=== PATIENT | male | born 1950 | race Caucasian/White ===

== ENCOUNTER 2017-05-29 12:37 | Inpatient (IN) ==
[2017-05-29] MEDS ORDERED: Acetaminophen 650 MG RECTAL SUPP RC ONE (12:46)
[2017-05-29] MEDS ORDERED: *HR* Dextrose 50 % in Water (Syg) 50 ML SYRINGE IVP PRN ×2 (12:51→12:58)
[2017-05-29] MEDS ORDERED: Insulin Regular, Human 100 UNIT/ML IV PRN (12:58)
[2017-05-29 13:08] LABS: ABG Base Excess -9 mEq/L (-2 to 3); ABG Chloride 121 mEq/L (98-107); ABG Glucose > 700 mg/dL (60-95); ABG HCO3 20 mEq/L (21-27); ABG Ionized Calcium 1.05 mmol/L (1.15-1.35); ABG Oxygen Saturation 90 % (95-98); ABG PCO2 55 mmHg (35-45); ABG PH 7.17 pH Units (7.32-7.45); ABG PO2 76 mmHg (85-104); ABG TCO2 22 mEq/L (20-26)
[2017-05-29] MEDS: Insulin Human Regular 100 UNIT in 0.9 % Sodium Chloride 100 ML IVC SCH ×2 (13:15→22:53)
--- NOTE | 2017-05-29 13:28 | Emergency Department Note ---
Disposition Clinical Impression: Septic shock, Elevated troponin, Hypernatremia Acute renal failure Qualifiers: Acute renal failure type: unspecified Qualified Code(s): N17.9 - Acute kidney failure, unspecified Acute respiratory failure Qualifiers: Respiratory failure complication: hypoxia Qualified Code(s): J96.01 - Acute respiratory failure with hypoxia Aspiration pneumonia Qualifiers: Aspiration pneumonia type: unspecified Laterality: bilateral Lung location: unspecified part of lung Qualified Code(s): J69.0 - Pneumonitis due to inhalation of food and vomit Diabetic ketoacidosis Qualifiers: Diabetes mellitus type: other specified (including BETO) Diabetes mellitus complication detail: without coma Qualified Code(s): E13.10 - Other specified diabetes mellitus with ketoacidosis without coma Disposition: Admitted As Inpatient Condition: Critical Reasons to Return/Additional Instructions: Admitted as inpatient Referrals: NONE,PCP [Primary Care Provider] - Time of Disposition: 17:53 General Adult HPI - General Chief complaint: ED General Medical Stated complaint: LOW BP Time Seen by Provider: 05/29/17 12:47 Source: EMS Mode of arrival: EMS Limitations: altered mental status Nursing Notes Reviewed: Yes Vital Signs Reviewed: Yes - History of Present Illness HPI Narrative: 66-year-old male who arrived via med flight from the [facility] emergency department. On arrival to the emergency room, patient was intubated, sedated. He was receiving levophed via peripheral line at a rate of 4. Report from EMS stated the patient had gone into septic shock and also had a blood sugar of greater than 800. Per chart review from [facility] emergency room, patient was sent from retirement after being found in respiratory distress and being unresponsive. He was unable to communicate at time of presentation and thus history of present illness is limited. O2 sats reportedly in the mid 80s on nonrebreather. He was intubated at that time. He was also noted to have a thick white sputum production coming through the endotracheal tube at that time. Intubation was confirmed via chest x-ray. He was started on triple antibiotic coverage as well as IV fluid bolus with a total of 4 L. Central line in the right groin was attempted but was unsuccessful as ultrasound was not available. Patient continued to be tachycardic with a heart rate in the 150s, blood pressure stable in the 110s systolic. He was noted to be in atrial fibrillation with rapid ventricular response. This recent blood pressure at time of departure was 119/87. Labs at [facility] were significant for sodium 150, potassium 5.9, chloride 108, bicarbonate 17, BUNs/creatinine of 80/4.12, glucose of 876, WBC of 15.6, H/H of 20.7/68.8 , coagulation studies significant for PT of 20.0, troponin of 0.26, lactic acid 8.5, beta hydroxybutyric acid 1.18. ABG was significant for combined metabolic and respiratory acidosis with pH of 7.15, CO2 67, bicarbonate 17. Pt Subjective Complaint: unresponsive Pain Scale: 0 Treatments Prior to Arrival: other - Related Data Home Medications Medication Instructions Recorded Confirmed Acetaminophen [Tylenol Arthritis] 650 mg PO Q6H PRN 05/29/17 05/29/17 Apixaban [Eliquis] 5 mg PO BID 05/29/17 05/29/17 Atorvastatin [Lipitor] 40 mg PO HS 05/29/17 05/29/17 Diltiazem CD (24hr) [Cardizem CD] 180 mg PO DAILY 05/29/17 05/29/17 Docusate [Colace] 100 mg PO BID 05/29/17 05/29/17 Guaifenesin [Mucinex] 600 mg PO BID 05/29/17 05/29/17 Melatonin 5 mg PO HS 05/29/17 05/29/17 Metoprolol [Lopressor] 25 mg PO BID 05/29/17 05/29/17 Quetiapine Fumarate [SEROquel] 100 mg PO HS 05/29/17 05/29/17 Allergies Allergy/AdvReac Type Severity Reaction Status Date / Time No Known Allergies Allergy Verified 05/29/17 08:41 Limitations: ROS unobtainable due to patients medical condition Past Medical History - Past Medical History Medical history: Reports: arthritis, atrial fibrillation, COPD, CVA, GERD, GI bleed, hyperlipidemia, hypertension, osteoporosis, SVT, TIA, venous stasis Surgical history: Reports: appendectomy Psychiatric history: Reports: PTSD - Social History Smoking Status: Current every day smoker Smokeless Tobacco Status: No Alcohol use: Reports: heavy Drug use: Reports: marijuana Physical Exam - General Limitations: altered mental status General appearance: other (Intubated, sedated) - Head Head exam: atraumatic, normocephalic, normal inspection - Chest Chest inspection: Present: normal inspection, symmetric chest wall rise - Expanded Respiratory Exam Location: rales: Right, decreased breath sounds: Left, Right - Cardiovascular Cardiovascular exam: Present: tachycardia - Abdominal Exam Abdominal exam: Present: soft. Absent: rigidity Course Course Narrative: 66-year-old male arriving via med flight for altered mental status, hypotension , shock. Patient was evaluated immediately upon presentation to the emergency room. Records review as per history of present illness. He did evaluate and determine the need for central line placement to the right internal jugular vein to maintain pressure and possible need for future rate control medications for tachycardia. Vital Signs Temperature 101 F H 05/29/17 12:39 Pulse Rate 168 05/29/17 12:39 Respiratory Rate 25 05/29/17 12:39 Blood Pressure 139/70 05/29/17 12:39 O2 Sat by Pulse Oximetry 100 05/29/17 12:39 Temperature 102.7 F H 05/29/17 15:59 Pulse Rate 131 05/29/17 17:16 Respiratory Rate 23 05/29/17 18:02 Blood Pressure 100/43 05/29/17 18:02 O2 Sat by Pulse Oximetry 89 05/29/17 18:02 Oxygen Delivery Oxygen Delivery Ventilator Procedures - Central Line Placement Right IJ Central Line Inserted*: Yes Central Line Catheter Replacement*: No Central Line Insertion: emergent Procedural Pause: verify patient name and date of , delicia and assess the site, assemble equipment and verify supplies, perform hand hygiene Patient Placed on Monitor/Pulse Ox: Yes During the Procedure: clinician is wearing sterile gloves, cap, mask,& gown during insertion, sterile field and sterile technique are maintained, patient's face is covered with drape or mask and wearing a cap, everyone in room is wearing a mask Central Line Prep: Chlorhexidine scrub Prep the Procedure Site: apply chloraprep to the skin using a back and forth scrubbing motion, apply chloraprep for 30 seconds (upper body), 1-2 min ( femoral sites), allow prep to dry, drape the patient with a full body drape Ultrasound Used for Placement: Yes Central Line Lumen Inserted: triple Post Procedure: sutured in place, good blood return, all ports aspirated, flushed, capped, sterile dressing applied, guide wire removed and visualized Post Procedure X-Ray: tip of catheter in good position, no pneumothorax seen Patient Tolerated Procedure: well Complications: none Name of Clinician Inserting Central Line: Ryan Davis Clinician Assisting/Completing Checklist: Caleb Panchaltter Date: 05/29/17 Time: 13:31 Medical Decision Making - [facility] Narrative Medical decision making narrative: 66-year-old male presenting to emergency room from [facility] ED after becoming unresponsive, in acute respiratory failure. He was intubated at [facility] and received a central line placement upon arrival to this facility. He was started on DKA protocol including insulin drip after he was discovered to have a blood sugar of greater than 800. He will be continued on triple antibiotic therapy for possible aspiration pneumonia. We did obtain CT scans of abdomen, chest, head which revealed bilateral lower lobe pneumonia, otherwise normal. Other labs significant for metabolic and respiratory acidosis, lactate of 8.5 which is down from 4.5 after fluid resuscitation, acute renal failure with a creatinine of 4.45, troponin 0.35. Other labs obtained at [facility] emergency room and reviewed. He was started on propofol, fentanyl, bicarbonate, Cardizem, insulin drips for sedation acidosis and atrial fibrillation with rapid ventricular response respectively. He also received an arterial line in the left radial artery. Patient's vital signs remained significant for persistent temperatures most recently 102, tachycardia in the 120s, blood pressure remains hypotensive in the 80s over 40s, and oxygen saturation in the 80s despite 100% FiO2 on ventilator. He is been given Tylenol rectally for his fever however it remains elevated. His findings were discussed with his sister who is present and she is aware of his poor prognosis. His prognosis remains extremely critical at this time. These findings were discussed with the on-call hospitalist. Due to no intensive care coverage, hospitalist except the admission to the intensive care unit with the pulmonology/critical care consult. - Lab Data Result diagrams: 05/29/17 16:28 Lab Results 05/29/17 05/29/17 05/29/17 Range/Units 13:01 13:33 13:33 Sample Site ABG pH 7.17 L* (7.32-7.45) pH Units ABG pCO2 55 H (35-45) mmHg ABG pO2 76 L (85-104) mmHg ABG HCO3 20 L (21-27) mEq/L ABG Total CO2 22 (20-26) mEq/L ABG O2 Saturation 90 L (95-98) % ABG Base Excess -9 L (-2 to 3) mEq/L ABG Hematocrit 60.0 H (37.5-50.1) % Alfonso Test ABG Chloride 121 H (98-107) mEq/L Sodium 154 H 150 H (135-148) mEq/L Potassium 5.2 5.7 H (3.5-5.3) mEq/L Glucose > 700 H* 773 H* (60-95) mg/dL Lactate 3.7 H (0.7-2.1) mmol/L Respiration Rate O2 Delivery Device Blood Gas Modality Inspired O2 (1-15=lpm [id number]=%) Tidal Volume cc PEEP cm H2O Chloride 119 H (98-107) mEq/L Carbon Dioxide 14 L (23-29) mEq/L BUN 81 H (8-23) mg/dL Creatinine 4.02 H (0.70-1.30) mg/dL Est GFR ( Amer) 18 L (> 60) Est GFR (Non-Af Amer) 15 L (> 60) BUN/Creatinine Ratio 20 (6-26) Calculated Osmolality 372 H (280-300) Lactic Acid 4.5 H* (0.5-2.2) mmol/L Calcium 7.8 L (8.6-10.3) mg/dL Ammonia (16-53) mcmol/L Troponin I 0.35 H* (< 0.04) ng/mL Arterial Blood Ionized Calcium 1.05 L (1.15-1.35) mmol/L Person Notif of Claudia GONZALES 05/29/17 05/29/17 05/29/17 Range/Units 13:34 16:28 18:01 Sample Site Art Line ABG pH 7.20 L* (7.32-7.45) pH Units ABG pCO2 53 H (35-45) mmHg ABG pO2 65 L (85-104) mmHg ABG HCO3 21 (21-27) mEq/L ABG Total CO2 23 (20-26) mEq/L ABG O2 Saturation 87 L (95-98) % ABG Base Excess -8 L (-2 to 3) mEq/L ABG Hematocrit (37.5-50.1) % Alfonso Test N/A ABG Chloride (98-107) mEq/L Sodium 154 H (135-148) mEq/L Potassium 4.4 (3.5-5.3) mEq/L Glucose 635 H* (60-95) mg/dL Lactate (0.7-2.1) mmol/L Respiration Rate 20 O2 Delivery Device Adult Vent Blood Gas Modality VC Inspired O2 100.0 (1-15=lpm [id number]=%) Tidal Volume 580 cc PEEP 5 cm H2O Chloride 121 H (98-107) mEq/L Carbon Dioxide 19 L (23-29) mEq/L BUN 84 H (8-23) mg/dL Creatinine 4.45 H (0.70-1.30) mg/dL Est GFR ( Amer) 16 L (> 60) Est GFR (Non-Af Amer) 13 L (> 60) BUN/Creatinine Ratio 19 (6-26) Calculated Osmolality 373 H (280-300) Lactic Acid (0.5-2.2) mmol/L Calcium 8.2 L (8.6-10.3) mg/dL Ammonia 65 H (16-53) mcmol/L Troponin I (< 0.04) ng/mL Arterial Blood Ionized Calcium (1.15-1.35) mmol/L Person Notif of Crit - EKG Data EKG #1 Rate: tachycardia Sasabe/QRS: left axis deviation When compared to previous EKG there are: changes noted Interpretation: other (tachyarrythmia documented, difficult to interpret rhythm given high heart rate. Suspect sinus tachycardia) Critical Care Time Critical Care Time: Yes Total Critical Care Time: 75 Attestation: Critical care performed: Time is exclusive of separately billable procedures. Time includes: direct patient care, patient reassessment, coordination of patient care, interpretation of data (laboratory data, radiology data, and respiratory data), review of patient's medical records, medical consultation and documentation of patient care. Procedures included in critical care time: Procedures excluded from critical care time: Attestation Statement - Attestation Attestation: I, Caleb Macdonald DO, examined this patient [id number] and my medical decision-making was reviewed with Julian Davis PGY-1, Resident Physician. I agree with the documented findings, disposition and treatment plan as described except to the extent set forth below. Please see my progress notes for details. Patient seen and examined the time of arrival by EMS. Patient was transferred from outside facility for evaluation and treatment of critical illness. Patient 's was seen and evaluated at the outside facility for fusion and possible sepsis. Patient was found to have aspiration pneumonia. He presented hypoxic and altered. He was immediately intubated at the outside facility. Fluid resuscitation was started 2 peripheral IVs in the bilateral hands. IV access was difficult in the central line was attempted in the right groin with no success. Patient had IV antibiotics including vancomycin, Zosyn, Levaquin started at their facility. Patient was given 3 L of fluid and had a fourth liter running in transit. He was started on Levaquin bed prior to leaving the facility as well to a peripheral IV. He had no issues during transport according to EMS. Patient did have a labile pulse ox. On presentation here to the emergency room patient was transported to the bed without any difficulty. Assessment of his intubation was completed. Bilateral breath sounds were noted but there are coarse on the right with diminished aeration. The abdomen was quiet on exam but distended. Patient does not have any urine output at this time. Immediately Accu-Cheks were given. EKG was recorded as well as repeat temperature which was 100 and here in our emergency room. Rectal Tylenol was given. An oropharyngeal gastric tube was placed. Patient then was given Motrin by OG tube. Patient had right internal jugular central line placed without any complication by the resident physician. I was present throughout and type of procedure there is no issues noted. Chest x-ray was completed after the procedure confirming placement. Medications were started infusing through that line at this time. Reviewed the patient's labs from the outside facility shows concerning for diabetic ketoacidosis. Patient does have a acidemia with a anion gap along with hyperkalemia hyponatremia and a glucose of greater than 800. Patient was started on diabetic ketoacidosis protocol and IV infusion of insulin. He also had a heart rate of greater than 130 on presentation that appeared to be regular but the etiology is unknown at this point. Concern is noted for dehydration versus sepsis. Patient will be started on Cardizem as needed for rate control. Patient has not required any sedation after arrival here. Vital signs to be monitored closely interventions including CT of the head chest and abdomen will be completed. IV antibiotics of Ativan given. Patient will require admission to the hospital. Patient is concerning for medical decompensation and clinical presentation and may potentially during this treatment course. Patient's family did arrive approximately 45 minutes after the arrival of the patient to our emergency room. They confirm that he does have a significant history of alcohol abuse and coronary artery disease. Troponin was elevated here today. EKG just shows tachycardia at this time and no specific ST segment elevations or concern for myocardial infarction at this point. Patient's rate will be controlled and then determination of the cardiac status will be confirmed and completed. She is also on Eliquis with no signs of acute GI bleed or hematemesis after OG was placed. Repeat ABG and respiratory rate were increased secondary to the diabetic ketoacidosis. Propofol will be added on for sedation and fentanyl for symptomatically control. Patient is very critically ill and may decompensate here in the emergency room. Currently he is a full code. ICU admission will be established once a full workup is completed. Approximately 60 minutes of critical care provider this patient's treatment course secondary to one-on-one interventional medication titrations and consultations. See detailed documentation of the physical exam, medical intervention, medical decision- making and disposition and the resident physician's note 1700 Patient is still profoundly hypotensive, acidotic. Patient is having respiratory issues including hypoxia. Ventilator adjustments have been made. Bicarbonate has been given. Titrated drips of the Levophed and vasopressin had been ordered at this time. An arterial line was placed by myself at the bedside with ultrasound guidance. No complications noted. Bleeding was controlled. Patient is critically ill and could decompensate and within the next 24 hours. Family was informed of this. Patient has multiple organ related issues including acute kidney insufficiency, decreased urinary output, pulmonary infection including aspiration concern. Patient also is confused and altered. Patient will be admitted to the ICU for definitive management treatment for severe sepsis. 1800 Patient transferred to the ICU in stable condition with arterial line in place. No complications noted in the emergency room despite the patient being critically ill. Patient has levothyroid, vasopressin, insulin drip, fluid resuscitation, amiodarone and place prior to leaving our emergency room.
[2017-05-29] MEDS ORDERED: Propofol 500 MG/50 ML INFUS..BTL ONE (13:37)
[2017-05-29] MEDS ORDERED: Ibuprofen 800 MG TABLET PO ONE (13:53)
[2017-05-29] MEDS: Propofol 500 MG/50 ML INFUS..BTL IVC SCH (14:00)
[2017-05-29 14:20] LABS: Troponin I 0.35 ng/mL (< 0.04)
[2017-05-29] MEDS: FentaNYL (PF) 1,000 MCG in 0.9 % Sodium Chloride 80 ML IVC SCH (14:40)
[2017-05-29] MEDS ORDERED: Furosemide 20 MG/2 ML VIAL IVP ONE (15:35)
[2017-05-29] MEDS ORDERED: Hydrocortisone Sodium Succ 100 MG/2 ML VIAL IVP ONE (15:36)
[2017-05-29] MEDS ORDERED: *HR* Rocuronium Bromide 50 MG/5 ML VIAL IVC ONE (15:36)
[2017-05-29 15:56] LABS: Calcium 7.8 mg/dL (8.6-10.3); Potassium 5.7 mEq/L (3.5-5.1)
[2017-05-29] MEDS ORDERED: 0.9 % Sodium Chloride 500 ML ONE ×2 (16:03→18:23)
[2017-05-29] MEDS: Sodium Bicarbonate 150 MEQ in D5% in Water 1,000 ML IVC SCH (16:27)
[2017-05-29 16:44] LABS: Calcium 8.2 mg/dL (8.6-10.3); Potassium 4.4 mEq/L (3.5-5.1)
[2017-05-29] MEDS ORDERED: OXYCODONE Oral CONC 10 MG/0.5 ML ORAL.SYG SL PRN ×2 (17:11)
[2017-05-29] MEDS ORDERED: Ketorolac 15 MG/ML VIAL IVP PRN (17:11)
[2017-05-29] MEDS ORDERED: Ondansetron 4 MG/2 ML VIAL IVP PRN (17:11)
[2017-05-29] MEDS ORDERED: Naloxone 0.4 MG/ML INJ IVP PRN ×2 (17:11)
[2017-05-29] MEDS ORDERED: Lacri-Lube 3.5 GM TUBE BOTH EYES PRN (17:14)
[2017-05-29] MEDS ORDERED: Ipratropium/Albuterol Neb 3 ML ONE (17:21)
[2017-05-29] MEDS: Ipratropium/Albuterol Neb 3 ML IH SCH ×3 (17:23→19:59)
--- NOTE | 2017-05-29 17:23 | Internal Med History&Physical ---
<RenePhil nieto Lenny - Last Filed: 05/29/17 19:47> Date of Encounter: 05/29/17 Time of Encounter: 17:13 Assessment and Plan (1) Acute respiratory failure Current visit: Yes Status: Acute Likely related to septic shock and pneumonia. Adequate oxygenation and ventilation. Continue full ventilatory support, ABGs every 2 hours. Qualifiers: Respiratory failure complication: hypoxia and hypercapnia Qualified Code(s) : J96.01 - Acute respiratory failure with hypoxia; J96.02 - Acute respiratory failure with hypercapnia; J96.02 - Acute respiratory failure with hypercapnia; J96.02 - Acute respiratory failure with hypercapnia (2) Septic shock Current visit: Yes Status: Acute Secondary to pneumonia. Lactic acid 8.5 at outside hospital has been trending down, was most recently 3.7. Blood and sputum cultures are pending. Patient received adequate fluid hydration with over 7 L of fluid given by the emergency department. Antibiotics were initiated emergency department with vancomycin, Levaquin and Zosyn, these will be continued and adjusted based on culture results. Will trend lactate. Continue vasopressor support with norepinephrine , will add vasopressin and phenylephrine to maintain map greater than 65. (3) Pneumonia Current visit: Yes Status: Acute Patient has evidence of pneumonia on chest CT, particularly in the lower lobes. Given the patient's history is concern for community-acquired versus aspiration. Sputum and blood cultures were obtained at outside ED, we will follow-up on these results. Given the patient's critical illness we will proceed with broad-spectrum antibiotics with vancomycin, Levaquin and Zosyn. Qualifiers: Pneumonia type: due to unspecified organism Laterality: unspecified laterality Lung location: unspecified part of lung Qualified Code(s): J18.9 - Pneumonia, unspecified organism (4) Diabetic ketoacidosis Current visit: Yes Status: Acute Patient has anion gap metabolic acidosis on presentation with a glucose greater than 700. There is no evidence that the patient has a history of diabetes. DKA protocol was initiated in the emergency department, patient received at least 7 L of fluids. He has been started on insulin drip in sugar has been trending down appropriately. Anion gap is improving. Given that the patient is critically ill he did receive 2 A of bicarbonate push. Continue to monitor blood sugars hourly Qualifiers: Diabetes mellitus type: other specified (including BETO) Diabetes mellitus complication detail: with coma Qualified Code(s): E13.11 - Other specified diabetes mellitus with ketoacidosis with coma (5) KINGSTON (acute kidney injury) Current visit: No Status: Resolved Creatinine was 4.12 on presentation, most recent measurement was in December 2016 when it was normal. Likely related to septic shock and profound dehydration setting of DKA. Patient has minimal urine output. Patient has been aggressively fluid resuscitated however most recent measurement creatinine has stayed stable. At this time the patient is not hyperkalemic, he is mildly uremic but severely, he is acidotic which is likely related to his underlying DKA and lactic acidosis. We will attempt to treat the underlying causes and monitor BMPs and ABGs every 2 hours, if acidosis fails to resolve patient may require acute dialysis. We will consult nephrology. (6) Atrial fibrillation with RVR Current visit: No Status: Acute Patient has chronic A. fib presented acutely tachycardic. Likely driven by his underlying critical illness including sepsis and DKA. Patient was initially started on Cardizem which improved his rate slightly but did not control his atrial fibrillation. We will transition to IV amiodarone and attempt to lessen his degree of hypotension. We will hold his home Eliquis at this time. (7) COPD exacerbation Current visit: No Status: Acute Patient appears to be in COPD exacerbation, IV antibiotics as above, Solu- Medrol 60 mg every 6, scheduled bronchodilators. (8) Hypernatremia Current visit: Yes Status: Acute Likely due to extreme free water deficit. Corrected sodium was 161 on presentation. Anticipate this this will worsen as his sodium is corrected. We will start free water through the G-tube, 200 mL every 4 hours. Continue to monitor sodium every 2 hours with a goal correction of 10 mEq per 24 hours. (9) Liver cirrhosis Current visit: Yes Status: Acute Likely secondary to alcohol abuse, no evidence of ascites and spontaneous bacterial peritonitis is unlikely. Ammonia was only mildly elevated at 65. Continue to monitor and will consider lactulose if patient's mental status does not improve. Qualifiers: Hepatic cirrhosis type: alcoholic cirrhosis Ascites presence: without ascites Qualified Code(s): K70.30 - Alcoholic cirrhosis of liver without ascites Internal Medicine - H&P: HPI Chief complaint: Resp Failure Admitted From: Emergency Dept History of present illness: Mr. Swanson is a 66 year old male with history of cirrhosis in the setting of chronic alcohol abuse, atrial fibrillation, tobacco abuse who presents from the emergency department unresponsive and acute respiratory failure. Patient is intubated and sedated and unable to provide a history. History is obtained from the medical record and discussions with the emergency department physicians. Apparently the patient was found unresponsive at the [facility] in respiratory distress and decreased oxygen saturation. He was found to be respiratory failure and was intubated. He was acutely tachycardic in atrial fibrillation with RVR. The emergency physician felt this was related to his underlying medical conditions so he did not undergo cardioversion. Patient was life flighted to the [facility] emergency department where a central line was placed. Patient remains intubated and sedated on pressor support. Past Med Surg Social Fam HX - Past Medical History Medical history: arthritis, atrial fibrillation, COPD, CVA, GERD, GI bleed, hyperlipidemia, hypertension, osteoporosis, SVT, TIA, venous stasis Psychiatric history: PTSD - Past Surgical History Surgical History: appendectomy - Social History Smoking Status: Current every day smoker Smokeless Tobacco Status: No Alcohol use: heavy Drug use: marijuana - Family History Father Family Member Ethnicity: Non- Living Status: Hx Family Endocrine Disorder: Yes (DM) Mother Adopted: No Family Member Ethnicity: Non- Living Status: Hx Family Cardiac Disorders: No Hx Family Respiratory Disorders: No Hx Family Cancer: No Hx Family GI Disorders: No Hx Family Endocrine Disorder: No Hx Family Neuromuscular Disorders: No Hx Family Neurologic Disorders: No Hx Family HEENT Disorders: No Hx Family Autoimmune Disorders: No Internal Medicine - H&P: Meds Acetaminophen [Tylenol Arthritis] 650 mg PO Q6H PRN 05/29/17 [History] Apixaban [Eliquis] 5 mg PO BID 05/29/17 [History] Atorvastatin [Lipitor] 40 mg PO HS 05/29/17 [History] Diltiazem CD (24hr) [Cardizem CD] 180 mg PO DAILY 05/29/17 [History] Docusate [Colace] 100 mg PO BID 05/29/17 [History] Guaifenesin [Mucinex] 600 mg PO BID 05/29/17 [History] Melatonin 5 mg PO HS 05/29/17 [History] Metoprolol [Lopressor] 25 mg PO BID 05/29/17 [History] Quetiapine Fumarate [SEROquel] 100 mg PO HS 05/29/17 [History] 3 Allergy/AdvReac Type Severity Reaction Status Date / Time No Known Allergies Allergy Verified 05/29/17 08:41 ROS unobtainable: due to endotracheal tube All Systems PM: A 10-system review of systems was performed and is negative for pertinent findings except as documented above in the HPI. - Constitutional Vitals: Temp Pulse Resp BP Pulse Ox 102.7 F H 135 22 79/50 87 05/29/17 15:59 05/29/17 17:03 05/29/17 17:03 05/29/17 17:03 05/29/17 17:03 Exam: Intubated and sedated, nonresponsive at this time - Head Head exam: Present: atraumatic, normal inspection, normocephalic - Eye Eye exam: Present: PERRL - ENT ENT exam: Present: mucous membranes dry - Respiratory Respiratory exam: Present: rhonchi. Absent: rales, respiratory distress, wheezes, tachypnea - Cardiovascular Cardiovascular exam: Present: irregular rhythm, tachycardia. Absent: gallop, rubs, systolic murmur - GI/Abdominal GI/Abdominal exam: Present: hypoactive bowel sounds, soft, no peritoneal signs. Absent: distended, firm - Extremities Exam Extremities exam: Present: mottling (In all 4 extremities). Absent: pedal edema Additional comments: Cold to touch - Neurological Exam Additional comments: Intubated and sedated. Apparently no emergency department patient was moving all 4 extremities spontaneously. - Skin Additional comments: Cool to touch. Internal Med - H&P Results - Labs CBC & Chem 7: 05/29/17 16:28 <Nicola Tovar - Last Filed: 05/29/17 20:31> Date of Encounter: 05/29/17 Internal Medicine - H&P: HPI History of present illness: Mr. Swanson is a 66 year old male All Systems PM: A 10-system review of systems was performed and is negative for pertinent findings except as documented above in the HPI. - Constitutional Vitals: Temp Pulse Resp BP Pulse Ox 103.1 F H 134 20 93/69 87 05/29/17 19:00 05/29/17 19:00 05/29/17 20:00 05/29/17 20:00 05/29/17 20:00 Internal Med - H&P Results - Labs CBC & Chem 7: 05/29/17 16:28 - ABG Interpretation ABG results: 05/29/17 05/29/17 18:01 19:57 ABG pH 7.20 L* 7.26 L ABG pCO2 53 H 46 H ABG pO2 65 L 60 L ABG HCO3 21 21 ABG Total CO2 23 22 ABG O2 Saturation 87 L 86 L ABG Base Excess -8 L -7 L - Attending Attestation I examined this patient and my medical decision-making was reviewed with the Resident Physician Dr Gamez. I agree with the documented findings, disposition and treatment plan as described except to the extent set forth below. The patient was found unresponsive and the [facility]. He was intubated in the field and brought to the hospital. He was found to be febrile. On exam he is sedated and intubated, does not respond to tactile stimuli. Heart is tachycardic irregularly irregular. Lungs sounds are diminished bilaterally. With faint expiratory wheezes. Abdomen is obese soft nontender nondistended. Laboratory data was reviewed. Glucose 635. Sodium 154, chloride 121, BUN 84, creatinine 4.45. ABG pH 7.17, PCO2 55, PCO2 [address] shows bibasilar infiltrates. Assessment: Bilateral pneumonia, suspect aspiration, causing acute hypoxic respiratory failure and combine respiratory and metabolic acidosis causing profound metabolic encephalopathy requiring mechanical ventilation. Septic shock requiring pressor support. The high probability of emergent and significant clinical decompensation with potential impairment of cardiovascular and respiratory function required my full attention and presence at the bedside. I personally spent 50 minutes of critical care time in the emergency department room 21 and ICU room 6. Critical care time involved decision making of high complexity to assess, manipulate, and support vital organ system, in order to prevent further life threatening deterioration of the patient's condition. This involved obtaining updated history from the patient's family member and nursing staff, examining the patient, reviewing EKGs, imaging studies and laboratory data, ordering medications and laboratory studies, and reevaluating for clinical response. The time spent teaching or performing any procedures was not included in the critical care time stated above and was billed separately.
[2017-05-29] MEDS ORDERED: Amiodarone Premix 150 MG/100 ML BAG IVPB ONE (17:26)
[2017-05-29] MEDS ORDERED: Amiodarone Premix 360 MG/200 ML BAG IVC ONE (17:26)
[2017-05-29] MEDS ORDERED: Ringers Solution, Lactated 2,000 ML IVC ONE (17:33)
[2017-05-29] MEDS: D5% in 0.45% NACL w KCl 20 MEQ/1,000 ML MLS IVC SCH (17:56)
[2017-05-29] MEDS ORDERED: Vancomycin 1,750 MG in 0.9 % Sodium Chloride 250 ML IVPB SCH (18:00)
[2017-05-29 18:04] LABS: ABG Base Excess -8 mEq/L (-2 to 3); ABG HCO3 21 mEq/L (21-27); ABG Oxygen Saturation 87 % (95-98); ABG PCO2 53 mmHg (35-45); ABG PO2 65 mmHg (85-104); ABG TCO2 23 mEq/L (20-26); Blood Gas Modality VC; Blood Gas PEEP 5 cm H2O; Blood Gas Respiration Rate 20; Blood Gas VT 580 cc
--- NOTE | 2017-05-29 18:55 | Event Note ---
Date of Encounter: 05/29/17 Time of Encounter: 18:30 Nephrology Received urgent consult for acute renal failure with oligoanuria, severe KINGSTON in the setting of septic shock, hypernatremia and DKA s/p fluid resuscitation. Intubated and requiring 100% FIO2 with CXR demonstrating concern for pulm edema. He has urgent indications for PIPEMAN and d/t his critical illness at present , the best modality at this point would be CRRT with CVVHDF. Discussed in detail with Dr. Gamez, and appreciate Dr. Tovar's and Dr. Gamez's assistance with the temporary HD CVC line placement. I also spoke with the [facility] regarding CVVHDF, and I placed orders remotely via [facility]. Thank you for consulting the [facility] group, and I will closely follow with you and the full consult note to follow.
[2017-05-29] MEDS ORDERED: *HR* Heparin 5,000 UNIT/ML VIAL IV PRN (18:56)
[2017-05-29] MEDS ORDERED: Calcium Gluconate 2,000 MG in 0.9 % Sodium Chloride 100 ML IVPB PRN (18:56)
[2017-05-29] MEDS ORDERED: 0.9 % Sodium Chloride 1,000 ML PRIME SCH (19:00)
[2017-05-29] MEDS ORDERED: Calcium Chloride 4,000 MG in 0.9 % Sodium Chloride 1,000 ML CRRT SCH (19:00)
--- NOTE | 2017-05-29 19:46 | Procedure Note ---
<Phil Gamez - Last Filed: 05/29/17 19:41> Date of procedure: 05/29/17 Pre-op diagnosis: Acute renal failure, fluid overload, septic shock Post-op diagnosis: same Procedure: Temporary dialysis catheter: Written consent was obtained from the patient's sister. The bilateral femoral veins were surveyed using ultrasound. The veins were both small in diameter and their proximity to the artery was made access difficult. The left inguinal area was cleaned and draped in the usual sterile fashion. Under ultrasound guidance introducer needle was advanced into the left femoral vein, dark red, nonpulsatile blood flow was returned. 2 attempts were made at advancing the guidewire however resistance was felt both times despite repositioning of the needle with good blood return. On a third attempt pulsatile blood flow was returned in the needle was removed and pressure was held for 10 minutes. At this point the drape was removed a new kit was opened and the right femoral area was prepped and draped in the usual sterile fashion. Under ultrasound guidance the needle was advanced into the right femoral vein. Dark red, nonpulsatile blood flow was returned. The guidewire was advanced through the needle and into the vein without difficulty. The needle was removed intact and the wire was confirmed to be within the vein using ultrasound. The skin and soft tissues were dilated with 2 successive dilators and the temporary HD catheter was advanced over the guidewire and into the vein without resistance. The guidewire was removed intact. Both dialysis ports and the pigtail were tested and shown to draw blood and flushed easily. The catheter was then sutured in place, Biopatch and sterile dressing were applied. The patient tolerated the procedure well, there were no immediate complications. Anesthesia: GETA Surgeon: Phil Gamez Was there an it assistant present: No Estimated blood loss (cc): 20 IV fluids (cc): 20 Specimen: none Pathology: none sent Condition: critical Disposition: ICU <Nicola Tovar - Last Filed: 05/29/17 20:23> Procedure: I was present and available at the bedside during the performance of this procedure. Procedure was performed by the resident physician skillfully. There are no complications. Patient tolerated the procedure well. Nicola Tovar MD
[2017-05-29] MEDS ORDERED: *HR* Norepinephrine 4 MG/4 ML VIAL IVC ONE (19:59)
[2017-05-29] MEDS ORDERED: D5% in Water 250 ML ONE (20:00)
[2017-05-29] MEDS: Piperacillin/Tazobactam 3.375 GM in 0.9 % Sodium Chloride Mini Bag 100 ML IVPB SCH (20:03)
[2017-05-29] MEDS: Pantoprazole 40 MG VIAL IVP SCH (20:04)
[2017-05-29] MEDS: Phenylephrine 10 MG in D5% in Water 250 ML IVC SCH (20:04)
[2017-05-29 20:05] LABS: ABG Base Excess -7 mEq/L (-2 to 3); ABG HCO3 21 mEq/L (21-27); ABG Oxygen Saturation 86 % (95-98); ABG PCO2 46 mmHg (35-45); ABG PH 7.26 pH Units (7.32-7.45); ABG PO2 60 mmHg (85-104); ABG TCO2 22 mEq/L (20-26); Blood Gas Modality VC; Blood Gas PEEP 10 cm H2O; Blood Gas Respiration Rate 20; Blood Gas VT 620 cc
[2017-05-29] MEDS: Norepinephrine 4 MG in D5% in Water 250 ML IVC SCH ×2 (20:09→22:58)
--- NOTE | 2017-05-29 20:35 | Event Note ---
Date of Encounter: 05/29/17 Time of Encounter: 20:27 CODE STATUS CHANGE: Yara, the patient's nurse reported to myself that the patient's sister requested to have the code status changed. I then went to speak with the patient's sister. The patient's sister reported that her brother would not want CPR should his heart stop. The patient has no children and is not . She wanted a code status change from full code to DNR CCA.
--- NOTE | 2017-05-29 20:47 | Internal Med Progress Note ---
Date of Encounter: 05/29/17 - Constitutional Vitals: Temp Pulse Resp BP Pulse Ox 103.1 F H 134 20 93/69 87 05/29/17 19:00 05/29/17 19:00 05/29/17 20:00 05/29/17 20:00 05/29/17 20:00 Internal Medicine: Result - Labs CBC & Chem 7: 05/29/17 16:28 - ABG Interpretation ABG results: ABG ABG pH 7.26 pH Units (7.32-7.45) L 05/29/17 19:57 ABG pCO2 46 mmHg (35-45) H 05/29/17 19:57 ABG pO2 60 mmHg (85-104) L 05/29/17 19:57 ABG O2 Saturation 86 % (95-98) L 05/29/17 19:57 Consult Discharge Plan - Plan Additional Instructions: Admitted as inpatient Referrals: NONE,PCP [Primary Care Provider] -
[2017-05-29 21:23] LABS: VBG Ionized Calcium 0.97 mmol/L (1.15-1.35); VBG PH 7.22 pH Units (7.32-7.42)
[2017-05-29 21:25] LABS: Basophils # 0.1 K/mcL (0.0-0.2); Basophils % 0.6 %; Immature Granulocytes % 0.9 % (0-4); Lymphocytes # 1.9 K/mcL (0.6-4.6); Lymphocytes % 14.6 %; Mean Corpuscular HGB Conc 30.6 g/dL (31.6-35.5); Mean Corpuscular Hemoglobin 31.6 pg (28.0-33.3); Mean Corpuscular Volume 103.1 fL (83.0-100.0); Mean Platelet Volume 11.7 fL (9.4-12.4); Monocytes # 0.3 K/mcL (0.0-1.3); Monocytes % 2.5 %; Neutrophils # 10.3 K/mcL (1.6-8.9); Nucleated Red Blood Cells 0.3 /100 WBC (0); Platelet Count 285 K/mcL (140-400); Red Blood Count 5.83 M/mcL (4.19-5.50); Red Cell Distribution Width 15.7 % (11.5-14.5); Segmented Neutrophils % 81.4 %
[2017-05-29 21:47] LABS: Calcium 7.9 mg/dL (8.6-10.3); Hematocrit 60.1 % (37.5-50.1); Hemoglobin 18.4 g/dL (12.9-16.9); Magnesium 2.2 mg/dL (1.6-2.6); Potassium 3.8 mEq/L (3.5-5.1)
[2017-05-29 21:58] LABS: Platelet Estimate Normal (Normal); Reactive Lymphocytes Present (Not Present)
[2017-05-29 22:06] LABS: ABG Base Excess -8 mEq/L (-2 to 3); ABG HCO3 19 mEq/L (21-27); ABG Oxygen Saturation 89 % (95-98); ABG PCO2 46 mmHg (35-45); ABG PH 7.23 pH Units (7.32-7.45); ABG PO2 67 mmHg (85-104); ABG TCO2 21 mEq/L (20-26); Blood Gas Modality VC; Blood Gas PEEP 10 cm H2O; Blood Gas Respiration Rate 20; Blood Gas VT 620 cc
[2017-05-29] MEDS: PrismaSATE BGK 4/2.5 5,000 ML CRRT SCH ×2 (22:52)
[2017-05-29] MEDS: Lacri-Lube 3.5 GM TUBE BOTH EYES SCH ×2 (22:54→23:55)
[2017-05-29 22:55] LABS: INR 2.4; Prothrombin Time 25.9 Seconds (9.4-12.1)
[2017-05-29 22:58] LABS: Activated Partial Thrombo Time 34.1 Seconds (26.0-36.0)
[2017-05-29] MEDS: Chlorhexidine Rinse 15 ML MOUTHWASH MM SCH (23:54)
[2017-05-29] MEDS: Amiodarone Premix 360 MG/200 ML BAG IVC SCH (23:55)
[2017-05-29] MEDS: Docusate Oral Soln 100 MG/10 ML UDC GTUBE SCH (23:55)
[2017-05-30] MEDS ORDERED: Aminoglycoside Consult 1 EACH MC ONE (00:09)
[2017-05-30] MEDS: Sodium Bicarbonate 150 MEQ in D5% in Water 1,000 ML IVC SCH (00:20)
[2017-05-30] MEDS: methylPREDNISolone 125 MG/2 ML VIAL IVP SCH ×2 (00:20→06:20)
[2017-05-30] MEDS: D5% in 0.45% NACL w KCl 20 MEQ/1,000 ML MLS IVC SCH (00:21)
[2017-05-30 00:24] LABS: ABG Base Excess -10 mEq/L (-2 to 3); ABG HCO3 19 mEq/L (21-27); ABG Oxygen Saturation 85 % (95-98); ABG PCO2 49 mmHg (35-45); ABG PO2 61 mmHg (85-104); ABG TCO2 21 mEq/L (20-26); Blood Gas Modality VC; Blood Gas PEEP 10 cm H2O; Blood Gas Respiration Rate 20; Blood Gas VT 620 cc
[2017-05-30] MEDS: Ipratropium/Albuterol Neb 3 ML IH SCH ×4 (00:39→11:35)
[2017-05-30 01:14] LABS: VBG Ionized Calcium 1.02 mmol/L (1.15-1.35); VBG PH 7.14 pH Units (7.32-7.42)
[2017-05-30] MEDS: Norepinephrine 4 MG in D5% in Water 250 ML IVC SCH ×2 (01:21→04:04)
[2017-05-30] MEDS: Insulin Human Regular 100 UNIT in 0.9 % Sodium Chloride 100 ML IVC SCH ×3 (01:22→06:27)
[2017-05-30 02:13] LABS: Calcium 8.2 mg/dL (8.6-10.3); Potassium 3.7 mEq/L (3.5-5.1)
[2017-05-30 02:16] LABS: Troponin I 0.35 ng/mL (< 0.04)
[2017-05-30] MEDS: FentaNYL (PF) 1,000 MCG in 0.9 % Sodium Chloride 80 ML IVC SCH (03:45)
[2017-05-30] MEDS: Phenylephrine 10 MG in D5% in Water 250 ML IVC SCH ×2 (03:45→06:18)
[2017-05-30 03:47] LABS: Hemoglobin 18.5 g/dL (12.9-16.9); Immature Granulocytes % 2.3 % (0-4); Lymphocytes % 10.8 %; Mean Corpuscular HGB Conc 30.7 g/dL (31.6-35.5); Mean Corpuscular Hemoglobin 31.8 pg (28.0-33.3); Mean Corpuscular Volume 103.8 fL (83.0-100.0); Mean Platelet Volume 11.5 fL (9.4-12.4); Monocytes % 2.4 %; Platelet Count 229 K/mcL (140-400); Red Blood Count 5.81 M/mcL (4.19-5.50); Red Cell Distribution Width 15.7 % (11.5-14.5)
[2017-05-30 03:48] LABS: Basophils # 0.1 K/mcL (0.0-0.2); Basophils % 0.5 %; Lymphocytes # 1.8 K/mcL (0.6-4.6); Monocytes # 0.4 K/mcL (0.0-1.3); Nucleated Red Blood Cells 0.2 /100 WBC (0)
[2017-05-30 04:01] LABS: Neutrophils # 14.1 K/mcL (1.6-8.9)
[2017-05-30 04:02] LABS: ABG Base Excess -10 mEq/L (-2 to 3); ABG HCO3 18 mEq/L (21-27); ABG Oxygen Saturation 89 % (95-98); ABG PCO2 47 mmHg (35-45); ABG PH 7.21 pH Units (7.32-7.45); ABG PO2 68 mmHg (85-104); ABG TCO2 20 mEq/L (20-26); Blood Gas Modality VC; Blood Gas PEEP 10 cm H2O; Blood Gas Respiration Rate 22; Blood Gas VT 620 cc
[2017-05-30 04:02] LABS: Hematocrit 60.3 % (37.5-50.1)
[2017-05-30 04:04] LABS: Calcium 8.4 mg/dL (8.6-10.3); Potassium 4.2 mEq/L (3.5-5.1)
[2017-05-30] MEDS: Lacri-Lube 3.5 GM TUBE BOTH EYES SCH ×3 (04:05→11:27)
[2017-05-30] MEDS: PrismaSATE BGK 4/2.5 5,000 ML CRRT SCH ×2 (04:13→04:15)
[2017-05-30] MEDS: Propofol 500 MG/50 ML INFUS..BTL IVC SCH (04:13)
[2017-05-30 04:35] LABS: Platelet Estimate Normal (Normal); Reactive Lymphocytes Present (Not Present)
[2017-05-30] MEDS ORDERED: *HR* Metoprolol 5 MG/5 ML VIAL IVP ONE ×2 (05:49→05:50)
[2017-05-30] MEDS ORDERED: Dexmedetomidine HCl 400 MCG/100 ML MLS IVC SCH (06:15)
[2017-05-30] MEDS: Piperacillin/Tazobactam 3.375 GM in 0.9 % Sodium Chloride Mini Bag 100 ML IVPB SCH (06:20)
[2017-05-30] MEDS ORDERED: Insulin LISPRO 300 UNITS/3 ML VIAL SQ PRN (06:30)
[2017-05-30] MEDS ORDERED: Phenylephrine 50 MG in D5% in Water 250 ML IVC SCH (07:45)
[2017-05-30] MEDS ORDERED: Insulin Human Regular 250 UNIT in 0.9 % Sodium Chloride 250 ML IVC SCH (07:45)
[2017-05-30] MEDS ORDERED: Norepinephrine 8 MG in D5% in Water 250 ML IVC SCH (07:45)
[2017-05-30 08:26] LABS: ABG Base Excess -9 mEq/L (-2 to 3); ABG HCO3 17 mEq/L (21-27); ABG Oxygen Saturation 92 % (95-98); ABG PCO2 37 mmHg (35-45); ABG PH 7.27 pH Units (7.32-7.45); ABG PO2 73 mmHg (85-104); ABG TCO2 18 mEq/L (20-26); Blood Gas Modality VC; Blood Gas PEEP 10 cm H2O; Blood Gas Respiration Rate 14; Blood Gas VT 620 cc
[2017-05-30] MEDS: Docusate Oral Soln 100 MG/10 ML UDC GTUBE SCH (08:34)
[2017-05-30] MEDS: Chlorhexidine Rinse 15 ML MOUTHWASH MM SCH (08:35)
[2017-05-30] MEDS: Pantoprazole 40 MG VIAL IVP SCH (08:35)
[2017-05-30] MEDS ORDERED: Hydrocortisone Sodium Succ 100 MG/2 ML VIAL IVP ONE (09:24)
--- NOTE | 2017-05-30 09:40 | Nephrology Consult Note ---
Date of Encounter: 05/30/17 Time of Encounter: 08:15 Assessment and Plan (1) Acute renal failure Status: Acute Overnight, I worked remotely to help arrange for Sita. Appreciate the hospitalist and resident physician in assistance with placement of the temporary HD catheter. He did poorly overnight and did not tolerate Sita d/t his progressively worsening hemodynamics. He could not even tolerate Sita with zero UF. Sita is currently held at least until the pt's daughter arrives, who is in route, and I agree with DNR CCA, given this pt's grave/poor prognosis. Thank you for having consulted the [facility] service. I spent about 45 min in total from the early hours this AM, chart review, studying his electrolytes/labs, vitals plus the interview and exam. Qualifiers: Acute renal failure type: unspecified Qualified Code(s): N17.9 - Acute kidney failure, unspecified History of Present Illness - Reason for Consult Consult date: 05/29/17 Acute Kidney Injury, hypernatremia, metabolic acidosis Requesting physician: Nicola Tovar - Chief Complaint KINGSTON - History of Present Illness Fer Swanson is a 66 y/o WM who presented with acute renal failure and acute respiratory failure in the ICU. Upon my initial interview and exam, his brother , cousin and the [facility] were at bedside. The pt's brother mentioned soon after my introduction that the pt would not want dialysis and that in fact the pt would soon be transitioning to palliative care. The brother said that another relative in currently in route to the hospital to say good bye and then the plans are to change to palliative care. I reviewed the labs, med lists, vitals, progress notes and imaging. All hx was obtained from the chart and family since the pt was intubated and sedated. Past Med Surg Social Fam HX - Past Medical History Medical history: arthritis, atrial fibrillation, COPD, CVA, GERD, GI bleed, hyperlipidemia, hypertension, osteoporosis, SVT, TIA, venous stasis Psychiatric history: PTSD - Past Surgical History Surgical History: appendectomy - Social History Smoking Status: Current every day smoker Smokeless Tobacco Status: No Alcohol use: heavy Drug use: marijuana - Family History Father Family Member Ethnicity: Non- Living Status: Hx Family Endocrine Disorder: Yes (DM) Mother Adopted: No Family Member Ethnicity: Non- Living Status: Hx Family Cardiac Disorders: No Hx Family Respiratory Disorders: No Hx Family Cancer: No Hx Family GI Disorders: No Hx Family Endocrine Disorder: No Hx Family Neuromuscular Disorders: No Hx Family Neurologic Disorders: No Hx Family HEENT Disorders: No Hx Family Autoimmune Disorders: No Medications and Allergies Acetaminophen [Tylenol Arthritis] 650 mg PO Q6H PRN 05/29/17 [History] Apixaban [Eliquis] 5 mg PO BID 05/29/17 [History] Atorvastatin [Lipitor] 40 mg PO HS 05/29/17 [History] Diltiazem CD (24hr) [Cardizem CD] 180 mg PO DAILY 05/29/17 [History] Docusate [Colace] 100 mg PO BID 05/29/17 [History] Guaifenesin [Mucinex] 600 mg PO BID 05/29/17 [History] Melatonin 5 mg PO HS 05/29/17 [History] Metoprolol [Lopressor] 25 mg PO BID 05/29/17 [History] Quetiapine Fumarate [SEROquel] 100 mg PO HS 05/29/17 [History] 3 Allergy/AdvReac Type Severity Reaction Status Date / Time No Known Allergies Allergy Verified 05/29/17 08:41 Review of Systems ROS unobtainable: due to endotracheal tube Exam - Vital Signs Vital signs: Initial Vital Signs Temp Pulse Resp BP Pulse Ox 101 F H 168 25 139/70 100 05/29/17 12:39 05/29/17 12:39 05/29/17 12:39 05/29/17 12:39 05/29/17 12:39 Vital Signs - Last 8 Hours Temp Pulse Resp BP Pulse Ox 05/30/17 08:00 100.9 F H 154 23 86/64 89 05/30/17 07:49 138 05/30/17 07:33 23 96/67 89 05/30/17 07:00 100.5 F H 138 23 96/67 87 05/30/17 06:00 100.1 F H 171 23 82/57 89 05/30/17 05:33 24 80/62 91 05/30/17 05:00 98.6 F 170 24 90/65 91 05/30/17 04:00 97.7 F 156 24 89/71 91 05/30/17 03:11 22 78/64 92 05/30/17 03:00 97.2 F L 161 22 93/70 93 05/30/17 02:00 94.8 F L 160 22 79/63 87 Intake and Output 05/29/17 05/30/17 05/30/17 23:59 07:59 15:59 Intake Total 900 / 920 1393 / 1393 0 / 0 Output Total 483 / 483 0 / 0 Balance 900 / 920 910 / 910 0 / 0 Intake: IV Fluids 900 / 920 1393 / 1393 Calcium Chloride 4,000 MG In 0. 100 / 100 9 % Sodium Chloride 1,000 ML @ 40 mls/hr CRRT CONT [facility] Rx#: [id number] PrismaSATE BGK 4/2.5 5,000 ML @ 0 / 0 1000 mls/hr CRRT CONT [facility] Rx#: [id number] Amiodarone Drip Premix 360mg/ 200 / 200 200mL 360 mg In 200 ml @ 1 MG/ MIN 33.333 mls/hr IVC ONCE ONE Rx#:[id number] KCl 20mEq IN D5%-0.45 NACL 20 100 / 100 meq In 1,000 ml @ 125 mls/hr IVC .Q8H [facility] Rx#:[id number] FentaNYL (PF) 1,000 MCG In 0.9 100 / 100 % Sodium Chloride 80 ML @ 50 MCG/HR 5 mls/hr IVC CONT [facility] Rx #:[id number] HumuLIN R 100 UNIT In 0.9 % 60 / 80 303 / 303 Sodium Chloride 100 ML @ 0.1 UNIT/KG/HR 11.21 mls/hr IVC CONT [facility] Rx#:[id number] Levophed 4 MG In Dextrose 5% 508 / 508 250 ML @ 10 MCG/MIN 38.1 mls/hr IVC CONT [facility] Rx#:[id number] Phenylephrine 10 MG In Dextrose 120 / 120 382 / 382 5% 250 ML @ 100 MCG/MIN 150.6 mls/hr IVC [facility] Rx#: [id number] Diprivan 500 mg In 50 ml @ 5 20 / 20 MCG/KG/MIN 3.33 mls/hr IVC . Q15H1M [facility] Rx#:[id number] Sodium Bicarbonate 150 MEQ In 300 / 300 Dextrose 5% 1,000 ML @ 125 mls/ hr IVC .Q9H12M [facility] Rx#: [id number] Zosyn 3.375 GM In 0.9 % Sodium 100 / 100 Chloride (Mini-Bag +) 100 ML @ 25 mls/hr IVPB Q12H [facility] Rx#: [id number] Oral 0 / 0 Output: Sita 473 / 473 0 / 0 Catheter 10 0 / 0 Other: Weight 106.9 kg Blood Glucose* 425 254 Patient Weight 05/30/17 23:59 Weight 106.9 kg - General Appearance General appearance: chronically ill, sedated on ventilator, intubated EENT: mucous membranes moist Neck: supple Respiratory: course breath sounds Cardiology: edema, normal S1, normal S2 Gastrointestinal: no tenderness, no guarding, obese Integumentary: cool/clammy Neurologic: obtunded Musculoskeletal: no cyanosis, no clubbing Results - Lab Results 05/30/17 03:30 05/30/17 03:30 Most recent lab results ABG pH 7.27 pH Units (7.32-7.45) L 05/30/17 08:22 ABG pCO2 37 mmHg (35-45) 05/30/17 08:22 ABG pO2 73 mmHg (85-104) L 05/30/17 08:22 ABG HCO3 17 mEq/L (21-27) L 05/30/17 08:22 ABG O2 Saturation 92 % (95-98) L 05/30/17 08:22 Calcium 8.4 mg/dL (8.6-10.3) L 05/30/17 03:30 Magnesium 2.0 mg/dL (1.6-2.6) 05/30/17 03:30 Consult Discharge Plan - Plan Additional Instructions: Admitted as inpatient Referrals: NONE,PCP [Primary Care Provider] -
--- NOTE | 2017-05-30 09:52 | Pulmonology Consult Note ---
Addendum entered and electronically signed by Phil Bosch DO 05/30/17 16: 01: Addendum Code Status This was changed by family with night team, and through discussion with palliative care, the family determined that discontinuing care would be in the patient's best interest. The patient will be kept comfortable per palliative care. Original Note: <Phil Bosch - Last Filed: 05/30/17 15:13> Date of Encounter: 05/30/17 Time of Encounter: 01:40 Assessment and Plan (1) Acute respiratory failure Current Visit: Yes Status: Acute Hypoxic respiratory failure secondary to shock and pneumonia Patient required full ventilatory support to maintain appropriate oxygenation Family decided to withdraw care this afternoon, and the patient was palliatively extubated Qualifiers: Respiratory failure complication: hypoxia and hypercapnia Qualified Code(s) : J96.01 - Acute respiratory failure with hypoxia; J96.02 - Acute respiratory failure with hypercapnia; J96.02 - Acute respiratory failure with hypercapnia; J96.02 - Acute respiratory failure with hypercapnia (2) Septic shock Current Visit: Yes Status: Acute Secondary to pneumonia Sepsis criteria: Leukocytosis, Fever, Tachycardia, Tachypnea, Hypotension with Pneumonia as source WBC 16.8, up from 12.7 Lactic acid 4.6 (8.5 -> 4.5->5.9), improving Antibiotics: Levaquin, Zosyn, Vancomycin Requiring Levophed, phenylephrine, vasopressin to maintain MAP >65 Patient's family has decided to withdraw care (3) Diabetic ketoacidosis Current Visit: Yes Status: Acute Diabetic Ketoacidosis, improving ABG pH 7.27, pCO2 37, HCO3 17. Anion gap 16, Glucose 354, Ketones present The patient is requiring 65U Insulin/hr drip at the moment Superimposed lactic acidosis secondary to septic shock Qualifiers: Diabetes mellitus type: other specified (including BETO) Diabetes mellitus complication detail: with coma Qualified Code(s): E13.11 - Other specified diabetes mellitus with ketoacidosis with coma (4) Pneumonia Current Visit: Yes Status: Acute Left basilar pneumonia, stable Patient is treated with antibiotics empirically as above These will be discontinued as patient is transitioned to comfort care Qualifiers: Pneumonia type: due to unspecified organism Laterality: unspecified laterality Lung location: unspecified part of lung Qualified Code(s): J18.9 - Pneumonia, unspecified organism (5) KINGSTON (acute kidney injury) Current Visit: Yes Status: Acute KINGSTON on likely CKD Serum creatinine 3.95, eGFR 15 Sita dialysis was attempted by nephrology however patient was not able to tolerate I/O 2534/493 B +2040 (6) Atrial fibrillation with RVR Current Visit: No Status: Acute Afib RVR exacerbated by septic shock No new treatment at this time (7) Liver cirrhosis Current Visit: Yes Status: Acute Likely secondary to alcohol use No significant signs of increased ammonia Qualifiers: Hepatic cirrhosis type: alcoholic cirrhosis Ascites presence: without ascites Qualified Code(s): K70.30 - Alcoholic cirrhosis of liver without ascites History of Present Illness Consult date: 05/30/17 Requesting physician: Nicola Tovar Reason for consult: dyspnea, pneumonia History of present illness: Mr. Méndez is a 66-year-old man with a history of cirrhosis secondary to chronic alcohol abuse, atrial fibrillation, COPD, CVA, GERD, GI bleeds, SVT, TIA who presented to the ED unresponsive and in acute respiratory failure. The patient was intubated and sedated, and was admitted to the hospital by internal medicine. In the ED, the patient was found to have pneumonia with a lactic acid of 8.5, and required aggressive fluid rehydration, and vasopressors. The patient was additionally found to have a high and I am Metabolic acidosis with a glucose greater than 700 thought to be DKA, and the severe KINGSTON. Past Med Surg Social Fam HX - Past Medical History Medical history: arthritis, atrial fibrillation, COPD, CVA, GERD, GI bleed, hyperlipidemia, hypertension, osteoporosis, SVT, TIA, venous stasis Psychiatric history: PTSD - Past Surgical History Surgical History: appendectomy - Social History Smoking Status: Current every day smoker Smokeless Tobacco Status: No Alcohol use: heavy Drug use: marijuana - Family History Father Family Member Ethnicity: Non- Living Status: Hx Family Endocrine Disorder: Yes (DM) Mother Adopted: No Family Member Ethnicity: Non- Living Status: Hx Family Cardiac Disorders: No Hx Family Respiratory Disorders: No Hx Family Cancer: No Hx Family GI Disorders: No Hx Family Endocrine Disorder: No Hx Family Neuromuscular Disorders: No Hx Family Neurologic Disorders: No Hx Family HEENT Disorders: No Hx Family Autoimmune Disorders: No Medications and Allergies Acetaminophen [Tylenol Arthritis] 650 mg PO Q6H PRN 05/29/17 [History] Apixaban [Eliquis] 5 mg PO BID 05/29/17 [History] Atorvastatin [Lipitor] 40 mg PO HS 05/29/17 [History] Diltiazem CD (24hr) [Cardizem CD] 180 mg PO DAILY 05/29/17 [History] Docusate [Colace] 100 mg PO BID 05/29/17 [History] Guaifenesin [Mucinex] 600 mg PO BID 05/29/17 [History] Melatonin 5 mg PO HS 05/29/17 [History] Metoprolol [Lopressor] 25 mg PO BID 05/29/17 [History] Quetiapine Fumarate [SEROquel] 100 mg PO HS 05/29/17 [History] 3 Allergy/AdvReac Type Severity Reaction Status Date / Time No Known Allergies Allergy Verified 05/29/17 08:41 ROS unobtainable: due to endotracheal tube, due to mental status All Systems: The remainder of the systems were reviewed and are negative Physical Examination Vital Signs: Vital Signs, Last 4 Hours Temp Pulse Resp BP Pulse Ox 05/30/17 08:00 100.9 F H 154 23 86/64 89 05/30/17 07:49 138 05/30/17 07:33 23 96/67 89 05/30/17 07:00 100.5 F H 138 23 96/67 87 05/30/17 06:00 100.1 F H 171 23 82/57 89 General appearance: no acute distress, asleep, comatose Eyes: nonicteric ENT: oropharynx moist Neck: supple Effort: very labored (seemingly agonal respirations ) Auscultation: bilateral: diminished breath sounds (diminished anteriorly ), rales (scattered crackles) Cardiovascular: regular rate and rhythm Gastrointestinal: soft, non-tender, non-distended Integumentary: normal Extremities: no cyanosis, no clubbing, edema Musculoskeletal: no deformities unable to assess due to mental status Ventilator Settings Ventilator Settings: Ventilator Settings, Last 8 Hours Ventilator Mode VC+ Ventilator Mode VC+ Ventilator Mode VC+ Ventilator Mode VC+ Ventilator Mode VC+ Ventilator Mode VC+ Ventilator Mode VC+ Ventilator Mode VC+ Ventilator Mode VC+ Ventilator Mode VC+ Ventilator Mode VC+ Ventilator Mode VC+ Ventilator Tidal Volume 620 Setting Ventilator Tidal Volume 620 Setting Ventilator Tidal Volume 620 Setting Ventilator Tidal Volume 620 Setting Ventilator Tidal Volume 620 Setting Ventilator Tidal Volume 620 Setting Ventilator Tidal Volume 620 Setting Ventilator Tidal Volume 620 Setting Ventilator Tidal Volume 620 Setting Ventilator Tidal Volume 620 Setting Ventilator Tidal Volume 620 Setting Ventilator Tidal Volume 620 Setting Ventilator Respiratory Rate 22 Setting Ventilator Respiratory Rate 22 Setting Ventilator Respiratory Rate 22 Setting Ventilator Respiratory Rate 22 Setting Ventilator Respiratory Rate 22 Setting Ventilator Respiratory Rate 22 Setting Ventilator Respiratory Rate 22 Setting Ventilator Respiratory Rate 22 Setting Ventilator Respiratory Rate 22 Setting Ventilator Respiratory Rate 22 Setting Ventilator Respiratory Rate 22 Setting Ventilator Respiratory Rate 22 Setting Actual Respiratory Rate 24 Actual Respiratory Rate 23 Actual Respiratory Rate 23 Actual Respiratory Rate 23 Actual Respiratory Rate 24 Actual Respiratory Rate 24 Actual Respiratory Rate 24 Actual Respiratory Rate 24 Actual Respiratory Rate 23 Actual Respiratory Rate 22 Positive End Expiratory 10 Pressure Positive End Expiratory 10 Pressure Positive End Expiratory 10 Pressure Positive End Expiratory 10 Pressure Positive End Expiratory 10 Pressure Positive End Expiratory 10 Pressure Positive End Expiratory 10 Pressure Positive End Expiratory 10 Pressure Positive End Expiratory 10 Pressure Positive End Expiratory 10 Pressure Positive End Expiratory 10 Pressure Positive End Expiratory 10 Pressure Peak Inspiratory Airway 30 Pressure Peak Inspiratory Airway 33 Pressure Peak Inspiratory Airway 27 Pressure Peak Inspiratory Airway 27 Pressure Peak Inspiratory Airway 28 Pressure Peak Inspiratory Airway 28 Pressure Peak Inspiratory Airway 29 Pressure Peak Inspiratory Airway 30 Pressure Peak Inspiratory Airway 29 Pressure Peak Inspiratory Airway 30 Pressure Results - Laboratory Findings CBC and BMP: 05/30/17 03:30 05/30/17 03:30 ABG ABG pH 7.27 pH Units (7.32-7.45) L 05/30/17 08:22 ABG pCO2 37 mmHg (35-45) 05/30/17 08:22 ABG pO2 73 mmHg (85-104) L 05/30/17 08:22 ABG O2 Saturation 92 % (95-98) L 05/30/17 08:22 PT/INR, D-dimer PT 25.9 Seconds (9.4-12.1) H 05/29/17 22:40 Abnormal lab findings: Abnormal lab results WBC 16.8 K/mcL (4.3-11.1) H 05/30/17 03:30 RBC 5.81 M/mcL (4.19-5.50) H 05/30/17 03:30 Hgb 18.5 g/dL (12.9-16.9) H 05/30/17 03:30 Hct 60.3 % (37.5-50.1) H 05/30/17 03:30 MCV 103.8 fL (83.0-100.0) H 05/30/17 03:30 MCHC 30.7 g/dL (31.6-35.5) L 05/30/17 03:30 RDW 15.7 % (11.5-14.5) H 05/30/17 03:30 Neutrophils # 14.1 K/mcL (1.6-8.9) H 05/30/17 03:30 Nucleated RBCs/100 WBC 0.2 /100 WBC (0) H 05/30/17 03:30 Reactive Lymphocytes Present (Not Present) A 05/30/17 03:30 PT 25.9 Seconds (9.4-12.1) H 05/29/17 22:40 ABG pH 7.27 pH Units (7.32-7.45) L 05/30/17 08:22 ABG pO2 73 mmHg (85-104) L 05/30/17 08:22 ABG HCO3 17 mEq/L (21-27) L 05/30/17 08:22 ABG Total CO2 18 mEq/L (20-26) L 05/30/17 08:22 ABG O2 Saturation 92 % (95-98) L 05/30/17 08:22 ABG Base Excess -9 mEq/L (-2 to 3) L 05/30/17 08:22 ABG Hematocrit 60.0 % (37.5-50.1) H 05/29/17 13:01 ABG Chloride 121 mEq/L (98-107) H 05/29/17 13:01 VBG pH 7.14 pH Units (7.32-7.42) L* 05/30/17 01:07 Sodium 154 mEq/L (135-148) H 05/29/17 13:01 Glucose > 700 mg/dL (60-95) H* 05/29/17 13:01 Lactate 3.7 mmol/L (0.7-2.1) H 05/29/17 13:01 Sodium 147 mEq/L (136-145) H 05/30/17 03:30 Chloride 115 mEq/L (98-107) H 05/30/17 03:30 Carbon Dioxide 16 mEq/L (23-29) L 05/30/17 03:30 BUN 67 mg/dL (8-23) H 05/30/17 03:30 Creatinine 3.95 mg/dL (0.70-1.30) H 05/30/17 03:30 Est GFR ( Amer) 18 (> 60) L 05/30/17 03:30 Est GFR (Non-Af Amer) 15 (> 60) L 05/30/17 03:30 Glucose 354 mg/dL (70-105) H 05/30/17 03:30 POC Glucose 379 (58-89) H 05/29/17 23:50 Calculated Osmolality 338 (280-300) H 05/30/17 03:30 Lactic Acid 5.9 mmol/L (0.5-2.2) H* 05/30/17 03:30 Calcium 8.4 mg/dL (8.6-10.3) L 05/30/17 03:30 Venous Ioniz Calcium 1.02 mmol/L (1.15-1.35) L 05/30/17 01:07 Ammonia 65 mcmol/L (16-53) H 05/29/17 13:34 Troponin I 0.30 ng/mL (< 0.04) H* 05/30/17 03:30 Arterial Blood Ionized Calcium 1.00 mmol/L (1.15-1.35) L 05/30/17 05:17 - Clinical Findings Intake & Output: Intake & Output 05/29/17 05/30/17 05/30/17 23:59 07:59 15:59 Intake Total 900 / 920 1393 / 1393 0 / 0 Output Total 483 / 483 0 / 0 Balance 900 / 920 910 / 910 0 / 0 Weight 106.9 kg Consult Discharge Plan - Plan Additional Instructions: Admitted as inpatient Referrals: NONE,PCP [Primary Care Provider] - <Eldon Pugh - Last Filed: 05/30/17 21:41> Date of Encounter: 05/30/17 All Systems: The remainder of the systems were reviewed and are negative Results - Laboratory Findings CBC and BMP: 05/30/17 03:30 05/30/17 03:30 ABG ABG pH 7.27 pH Units (7.32-7.45) L 05/30/17 08:22 ABG pCO2 37 mmHg (35-45) 05/30/17 08:22 ABG pO2 73 mmHg (85-104) L 05/30/17 08:22 ABG O2 Saturation 92 % (95-98) L 05/30/17 08:22 PT/INR, D-dimer PT 25.9 Seconds (9.4-12.1) H 05/29/17 22:40 Abnormal lab findings: Abnormal lab results WBC 16.8 K/mcL (4.3-11.1) H 05/30/17 03:30 RBC 5.81 M/mcL (4.19-5.50) H 05/30/17 03:30 Hgb 18.5 g/dL (12.9-16.9) H 05/30/17 03:30 Hct 60.3 % (37.5-50.1) H 05/30/17 03:30 MCV 103.8 fL (83.0-100.0) H 05/30/17 03:30 MCHC 30.7 g/dL (31.6-35.5) L 05/30/17 03:30 RDW 15.7 % (11.5-14.5) H 05/30/17 03:30 Neutrophils # 14.1 K/mcL (1.6-8.9) H 05/30/17 03:30 Nucleated RBCs/100 WBC 0.2 /100 WBC (0) H 05/30/17 03:30 Reactive Lymphocytes Present (Not Present) A 05/30/17 03:30 PT 25.9 Seconds (9.4-12.1) H 05/29/17 22:40 ABG pH 7.27 pH Units (7.32-7.45) L 05/30/17 08:22 ABG pO2 73 mmHg (85-104) L 05/30/17 08:22 ABG HCO3 17 mEq/L (21-27) L 05/30/17 08:22 ABG Total CO2 18 mEq/L (20-26) L 05/30/17 08:22 ABG O2 Saturation 92 % (95-98) L 05/30/17 08:22 ABG Base Excess -9 mEq/L (-2 to 3) L 05/30/17 08:22 ABG Hematocrit 60.0 % (37.5-50.1) H 05/29/17 13:01 ABG Chloride 121 mEq/L (98-107) H 05/29/17 13:01 VBG pH 7.14 pH Units (7.32-7.42) L* 05/30/17 01:07 Sodium 154 mEq/L (135-148) H 05/29/17 13:01 Glucose > 700 mg/dL (60-95) H* 05/29/17 13:01 Lactate 3.7 mmol/L (0.7-2.1) H 05/29/17 13:01 Sodium 147 mEq/L (136-145) H 05/30/17 03:30 Chloride 115 mEq/L (98-107) H 05/30/17 03:30 Carbon Dioxide 16 mEq/L (23-29) L 05/30/17 03:30 BUN 67 mg/dL (8-23) H 05/30/17 03:30 Creatinine 3.95 mg/dL (0.70-1.30) H 05/30/17 03:30 Est GFR ( Amer) 18 (> 60) L 05/30/17 03:30 Est GFR (Non-Af Amer) 15 (> 60) L 05/30/17 03:30 Glucose 354 mg/dL (70-105) H 05/30/17 03:30 POC Glucose 379 (58-89) H 05/29/17 23:50 Calculated Osmolality 338 (280-300) H 05/30/17 03:30 Lactic Acid 4.6 mmol/L (0.5-2.2) H* 05/30/17 10:35 Calcium 8.4 mg/dL (8.6-10.3) L 05/30/17 03:30 Venous Ioniz Calcium 1.02 mmol/L (1.15-1.35) L 05/30/17 01:07 Ammonia 65 mcmol/L (16-53) H 05/29/17 13:34 Troponin I 0.30 ng/mL (< 0.04) H* 05/30/17 03:30 Arterial Blood Ionized Calcium 1.00 mmol/L (1.15-1.35) L 05/30/17 05:17 - Clinical Findings Intake & Output: Intake & Output 05/30/17 05/30/17 05/30/17 07:59 15:59 23:59 Intake Total 1393 / 1393 200 / 200 Output Total 483 / 483 10 10 Balance 910 / 910 190 / 190 Weight 106.9 kg - Attending Attestation I saw and evaluated this patient and my medical decision-making was reviewed with the Resident Physician. I agree with the documented findings, disposition and treatment plan as described except to the extent set forth below. We independently had [id number] contact with the patient I spent 45 minutes of Critical Care time with this patient. It involved decision making of high complexity to assess, manipulate, and support vital organ system failure and/or to prevent further life threatening deterioration of the patient's condition. The time involved in the performance of separately reportable procedures was not counted toward critical care time. Patient seen and examined at bedside Labs, radiology, chart personally reviewed. Management was reviewed during multidisciplinary critical care rounds. WATERPROOFER:Patient is intubated and ventilated completely comatose toxic vs metabolic encephalopathy . Pulm: Patient has V/Q mismatch secondary basilar airspace disease and fluid overlaod , adjusted TV and MV to compensate for metabolic acidosis lung mechanics are decent will continue the current ventilator settings Cards:Patient is in septic shock with multiple vasopressors titrating to MAP to 60 , patient worsening hemodynamic stability despite of vasopressor therapy will put him on IV hydrocortisone FEN-GI: NPO Renal:KINGSTON with worsening acidosis patient is tolerating Sita due to hemodynamically instability according to Nephrology ID:Septic shock to continue broad spectrum antibiotics Heme/Onc:Labs reviewed Endo: Glucose Monitored , started on hydrocortisone Integ/MSK: Skin Care per routine ICU Nursing Protocol to prevent ulcers. Lines: All lines examined without evidence of infection : Dispo: Patient is critically ill high risk of dying today CODE:[id number] -Family is leaning towards comfort care .Palliative on Board .
--- NOTE | 2017-05-30 11:41 | Palliative - Consult Note ---
<Ellen Cifuentes - Last Filed: 05/30/17 13:05> Date of Encounter: 05/30/17 Time of Encounter: 10:30 - Assessment and Plan (1) Generalized pain Current Visit: Yes Status: Acute Assessment and plan: Fentanyl drip running to control patient's discomfort; continue to titrate per ICU protocol. Patient will have bolus Fentanyl 50 mcg prior to extubation. (2) Goals of care, counseling/discussion Current Visit: Yes Status: Acute Assessment and plan: Discussed with Jacquelin (Sister) and Paresh (Brother) plans for care. Changed status to comfort care. Discussed per patient's previous wishes, family wished to withdraw care as previously discussed as a family. Discussed process of compassionate extubation, family verbalizes understanding. Offered chaplancy services, family refused as already visited with personal bullet slugs inspector. Discontinued monitoring and scheduled medications. (3) Acute respiratory failure Current Visit: Yes Status: Acute Qualifiers: Respiratory failure complication: hypoxia and hypercapnia Qualified Code(s) : J96.01 - Acute respiratory failure with hypoxia; J96.02 - Acute respiratory failure with hypercapnia; J96.02 - Acute respiratory failure with hypercapnia; J96.02 - Acute respiratory failure with hypercapnia (4) Diabetic ketoacidosis Current Visit: Yes Status: Acute Qualifiers: Diabetes mellitus type: other specified (including BETO) Diabetes mellitus complication detail: with coma Qualified Code(s): E13.11 - Other specified diabetes mellitus with ketoacidosis with coma (5) Septic shock Current Visit: Yes Status: Acute Assessment and plan: As patient is transitioned to comfort care, all aggressive treatment plans including intubation and IV antibiotics discontinued. (6) Anxiety Current Visit: Yes Status: Acute Assessment and plan: Patient anxious on assessment. Patient continuing Precedex drip, at 0.4 mcg/hr. Additional Ativan IVP available as needed for control of Anxiety. Will give bolus Ativan 2 mg prior to extubation. Palliative-CN HPI - Data of Consult Patient: new to practice Consult date: 05/30/17 Requesting Physician: iNcola Tovar MD Primary Care Provider: PCP NONE - Consult Narrative Palliative Care/Comfort Measures: Palliative care Reason for consult: Goals of care. History of present illness: Mr. Swanson is a 66 year old male admitted with Acute Respiratory Failure, Septic shock, Pneumonia, DKA, K[place]ST[place], Afib with RVR, COPD Exacerbation, Hypernatremia, and Liver Cirrhosis. Current history of Tobacco abuse, marijuana use, and alcohol consumption. Originally a resident at [place], become nonresponsive and transferred to [facility], where patient was intubated and central line placed. According to staff patient was life flighted as mobile ICU was unavailable at the time. Currently remains intubated in the ICU, requiring 3 vasopressor support for hypotension and septic shock management. Information is being obtained from family at bedside, Brother Paresh and Sister Jacquelin, as patient intubated. Discussed with family goals of care. Upon visit patient laying in bed, intubated and sedated with eyes open, appears tense. Sedation running. Patient restless and pulling at times. Mutliple family members at bedside, preparing for compassionate extubation. Family has requested patient to be "removed from the machines, and allow God to take over" which was patient's previously known wishes. Personal Roll Examiner visiting at bedside. CC: Nicola Tovar MD Past Med Surg Social Fam HX - Past Medical History Medical history: arthritis, atrial fibrillation, COPD, CVA, GERD, GI bleed, hyperlipidemia, hypertension, osteoporosis, SVT, TIA, venous stasis, other ( Dysphagia.) Psychiatric history: PTSD, schizophrenia - Past Surgical History Surgical History: appendectomy - Social History Smoking Status: Current every day smoker Smokeless Tobacco Status: No Alcohol use: heavy Drug use: marijuana Current living situation: [facility] Activity Level: Wheelchair bound Recent Out of Country Travel Within the Last 8 Weeks: No Exposure or Possible Exposure to Illness During Travel: No - Family History Father Family Member Ethnicity: Non- Living Status: Hx Family Endocrine Disorder: Yes (DM) Mother Adopted: No Family Member Ethnicity: Non- Living Status: Hx Family Cardiac Disorders: No Hx Family Respiratory Disorders: No Hx Family Cancer: No Hx Family GI Disorders: No Hx Family Endocrine Disorder: No Hx Family Neuromuscular Disorders: No Hx Family Neurologic Disorders: No Hx Family HEENT Disorders: No Hx Family Autoimmune Disorders: No Medications and Allergies Acetaminophen [Tylenol Arthritis] 650 mg PO Q6H PRN 05/29/17 [History] Apixaban [Eliquis] 5 mg PO BID 05/29/17 [History] Atorvastatin [Lipitor] 40 mg PO HS 05/29/17 [History] Diltiazem CD (24hr) [Cardizem CD] 180 mg PO DAILY 05/29/17 [History] Docusate [Colace] 100 mg PO BID 05/29/17 [History] Guaifenesin [Mucinex] 600 mg PO BID 05/29/17 [History] Melatonin 5 mg PO HS 05/29/17 [History] Metoprolol [Lopressor] 25 mg PO BID 05/29/17 [History] Quetiapine Fumarate [SEROquel] 100 mg PO HS 05/29/17 [History] 3 Allergy/AdvReac Type Severity Reaction Status Date / Time No Known Allergies Allergy Verified 05/29/17 08:41 ROS unobtainable: due to endotracheal tube Palliative Care-Exam - Constitutional Vitals: Temp Pulse Resp BP Pulse Ox 102.3 F H 131 26 89/68 92 05/30/17 11:00 05/30/17 11:13 05/30/17 11:00 05/30/17 11:00 05/30/17 11:00 General appearance: Present: mild distress - Head Head Exam: Present: normocephalic - ENT ENT exam: Present: mucous membranes moist - Respiratory Respiratory exam: Present: CTAB - Cardiovascular Cardiovascular exam: Present: irregular rhythm, +S1, +S2, tachycardia - Expanded Cardiovascular Exam Peripheral pulses: 1+: Radial (L), Radial (R), Dorsalis Pedis (L) PM, Dorsalis Pedis (R) PM - GI/Abdominal Exam GI/Abdominal exam: Present: diminished bowel sounds, firm - Rectal Rectal Exam: Present: deferred - Neurological Exam Additional comments: Unable to perform full neurological exam as patient sedated and on ventilator. - Psychiatric Psychiatric exam: Present: anxious - Skin Skin exam: Present: mottled. Absent: warm Internal Medicine - CN: Reslt - Labs CBC & Chem 7: 05/30/17 03:30 05/30/17 03:30 Labs: Short CBC 05/29/17 05/30/17 Range/Units 20:45 03:30 WBC 12.7 H 16.8 H (4.3-11.1) K/mcL Hgb 18.4 H D 18.5 H (12.9-16.9) g/dL Hct 60.1 H 60.3 H (37.5-50.1) % Plt Count 285 229 (140-400) K/mcL Neutrophils # 10.3 H 14.1 H (1.6-8.9) K/mcL BMP 05/29/17 05/30/17 05/30/17 20:45 00:45 03:30 Sodium 151 H 147 H 147 H Potassium 3.8 3.7 4.2 Chloride 120 H 117 H 115 H Carbon Dioxide 17 L 16 L 16 L BUN 83 H 74 H 67 H Creatinine 4.61 H 4.11 H 3.95 H Glucose 540 H* 415 H 354 H Calcium 7.9 L 8.2 L 8.4 L Cardiac Enzymes 05/29/17 05/30/17 05/30/17 Range/Units 20:45 00:45 03:30 Troponin I 0.46 H* 0.35 H* 0.30 H* (< 0.04) ng/mL - ABG Interpretation ABG results: ABG ABG pH 7.27 pH Units (7.32-7.45) L 05/30/17 08:22 ABG pCO2 37 mmHg (35-45) 05/30/17 08:22 ABG pO2 73 mmHg (85-104) L 05/30/17 08:22 ABG O2 Saturation 92 % (95-98) L 05/30/17 08:22 PT/INR, D-dimer PT 25.9 Seconds (9.4-12.1) H 05/29/17 22:40 - Impressions Impressions Chest X-Ray 05/30/17 04:00 IMPRESSION: 1. Grossly stable pulmonary edema and right basilar airspace disease. 2. There is new left basilar atelectasis versus pneumonia. D/ / Jet Deng MD / Jet Deng MD Interpreting Provider: Jet Deng MD Consult Discharge Plan - Plan Additional Instructions: Admitted as inpatient Referrals: NONE,PCP [Primary Care Provider] - Palliative Quality Palliative Quality: Screen for Code Status: Yes, Screen for Goals of Care: Yes, Screen for Pain: Yes, If Pain Regimen Started, Initiate Bowel Regimen: NA, Screen for Nausea/Vomitting: NA Code Status: 05/29/17 17:11 Resuscitation Status: Active [RES] Routine Comment: Per Sister, conveyed via ED staff Resuscitation Status: Full Code Resuscitation Status: Active [RES] Routine Comment: Per Sister Resuscitation Status: DNR-Comfort Care-Arrest <Meghana Lopez - Last Filed: 05/30/17 14:06> Date of Encounter: 05/30/17 Palliative-CN HPI - Data of Consult Requesting Physician: Nicola Tovar MD Primary Care Provider: PCP NONE - Consult Narrative History of present illness: Mr. Swanson is a 66 year old male CC: Nicola Tovar MD Palliative Care-Exam - Constitutional Vitals: Temp Pulse Resp BP Pulse Ox 102.3 F H 131 28 89/68 88 05/30/17 11:00 05/30/17 11:13 05/30/17 11:36 05/30/17 11:36 05/30/17 11:36 Internal Medicine - CN: Reslt - Labs CBC & Chem 7: 05/30/17 03:30 05/30/17 03:30 Labs: Short CBC 05/29/17 05/30/17 Range/Units 20:45 03:30 WBC 12.7 H 16.8 H (4.3-11.1) K/mcL Hgb 18.4 H D 18.5 H (12.9-16.9) g/dL Hct 60.1 H 60.3 H (37.5-50.1) % Plt Count 285 229 (140-400) K/mcL Neutrophils # 10.3 H 14.1 H (1.6-8.9) K/mcL BMP 05/29/17 05/30/17 05/30/17 20:45 00:45 03:30 Sodium 151 H 147 H 147 H Potassium 3.8 3.7 4.2 Chloride 120 H 117 H 115 H Carbon Dioxide 17 L 16 L 16 L BUN 83 H 74 H 67 H Creatinine 4.61 H 4.11 H 3.95 H Glucose 540 H* 415 H 354 H Calcium 7.9 L 8.2 L 8.4 L Cardiac Enzymes 05/29/17 05/30/17 05/30/17 Range/Units 20:45 00:45 03:30 Troponin I 0.46 H* 0.35 H* 0.30 H* (< 0.04) ng/mL - ABG Interpretation ABG results: ABG ABG pH 7.27 pH Units (7.32-7.45) L 05/30/17 08:22 ABG pCO2 37 mmHg (35-45) 05/30/17 08:22 ABG pO2 73 mmHg (85-104) L 05/30/17 08:22 ABG O2 Saturation 92 % (95-98) L 05/30/17 08:22 PT/INR, D-dimer PT 25.9 Seconds (9.4-12.1) H 05/29/17 22:40 - Impressions Impressions Chest X-Ray 05/30/17 04:00 IMPRESSION: 1. Grossly stable pulmonary edema and right basilar airspace disease. 2. There is new left basilar atelectasis versus pneumonia. D/ / Jet Deng MD / Jet Deng MD Interpreting Provider: Jet Deng MD Palliative Quality Code Status: 05/29/17 17:11 Resuscitation Status: Active [RES] Routine Comment: Per Sister Resuscitation Status: DNR-Comfort Care-Arrest Resuscitation Status: Active [RES] Routine Comment: Per Sister, conveyed via ED staff Resuscitation Status: Full Code 05/30/17 12:50 DNR [Resuscitation Status: Active] [RES] Routine Comment: Resuscitation Status: DNR-Comfort Care
[2017-05-30] MEDS: Amiodarone Premix 360 MG/200 ML BAG IVC SCH (12:25)
[2017-05-30] MEDS ORDERED: *HR* LORazepam 2 MG/ML VIAL IVP PRN ×2 (12:51→18:04)
[2017-05-30] MEDS ORDERED: Atropine Sulfate 1% 40 DROP/2 ML BOTTLE SL PRN ×2 (12:59→18:04)
[2017-05-30] MEDS ORDERED: Piperacillin/Tazobactam 3.375 GM in 0.9 % Sodium Chloride Mini Bag 100 ML IVPB SCH (14:00)
[2017-05-30] MEDS ORDERED: *HR* FentaNYL (PF) 100 MCG/2 ML VIAL IVP PRN ×2 (15:22→18:04)
[2017-05-30] MEDS ORDERED: FentaNYL (PF) 1,000 MCG in 0.9 % Sodium Chloride 80 ML IVC SCH ×2 (15:25→18:04)
[2017-05-30] MEDS ORDERED: Scopolamine Patch 1.5 MG PATCH.TD72 TD SCH (15:30)
[2017-05-30 21:49] VITALS: BP 47/36
--- NOTE | 2017-05-31 00:42 | Death Note ---
<Alyssia Candelario - Last Filed: 05/31/17 00:40> Discharge Sum: Summary - Date and Time Date of admission: 05/29/17 16:53 Date of : 05/30/17 Time of : 22:50 - Summary Details: Patient presented to [facility] unresponsive and acute respiratory failure. He was in septic shock secondary to pneumonia. He was also found to be in diabetic ketoacidosis despite no history of diabetes. Patient has chronic A. fib presented acutely tachycardic. Likely driven by his underlying critical illness including sepsis and DKA. KINGSTON on likely CKD, Keny dialysis was attempted by nephrology however patient was not able to tolerate. The patient required Levophed, phenylephrine, vasopressin. He was DNR CCA. Palliative care was consulted and had a through discussion with the family. The family decided that discontinuing care would be in the patient's best interest. The patient was kept comfortable per palliative care. The family left before his passing but his nurse was at bedside. He had no pulse, heart sounds, breathe sounds, pupils fixed and dilated. Time of 22:50 on 05/30/2017. - Additional Data Confirmation of as documented by pronouncing clinician: no pulse, no respirations, no heart sounds, pupils fixed and dilated Family: contacted Attending/PCP notified?: No Attending physician: Nicola Tovar MD Was code activated?: No Autopsy requested?: No cone examiner notified?: No Organ bank notified?: No Advance directives: No Hospice patient?: No Discharge Sum: Diag - PCOD Probable Cause of : Sepsis Discharge Sum: Prov - Provider Primary care physician: PCP NONE Admitting clinician: Phil Gamez Attending physician on admission: Nicola Tovar Consults: 05/29/17 18:10 Consult to Nephrology [CONS] Routine Consulting Provider: Kidney Donna/SANDRA/RABIA/MOO Reason for Consult: KINGSTON/Septic Shock/Hypernatremia Time Notified: 18:10 Call Completed: Yes 05/29/17 18:23 Consult to Pulmonology [CONS] Routine Consulting Provider: Pulm Crit Care & Sleep Donna Reason for Consult: intubated Call Completed: Yes 05/30/17 09:57 Consult to Palliative Care [CONS] Routine Comment: Consulting Provider: Palliative Care Donna Reason for Consult: septic shock/esrd, cannot tolerate keny, family considering withdrawing care Call Completed: No Pronouncing clinician: Alyssia Candelario <Eldon Pugh - Last Filed: 05/31/17 20:38> Discharge Sum: Summary - Date and Time Date of admission: 05/29/17 16:53 - Summary Details: I agree with summary documented by the resident physician patient developed severe refractory septic shock secondary to pneumonia . According to patient wishes , family changed the goals of care to comfort care measures only - Additional Data Attending physician: Nicola Tovar MD Discharge Sum: Prov - Provider Primary care physician: PCP NONE Consults: 05/29/17 18:10 Consult to Nephrology [CONS] Routine Consulting Provider: Kidney Donna/SANDRA/RABIA/MOO Reason for Consult: [place]/Septic Shock/Hypernatremia Time Notified: 18:10 Call Completed: Yes 05/29/17 18:23 Consult to Pulmonology [CONS] Routine Consulting Provider: Pulm Crit Care & Sleep Donna Reason for Consult: intubated Call Completed: Yes 05/30/17 09:57 Consult to Palliative Care [CONS] Routine Comment: Consulting Provider: Palliative Care [place] Reason for Consult: septic shock/esrd, cannot tolerate keny, family considering withdrawing care Call Completed: No
[2017-05-31] MEDS ORDERED: Levofloxacin 500 MG/100 ML 500 MG/100 ML BAG IVPB SCH (09:00)
--- NOTE | 2017-05-31 19:52 | Electrocardiograph Report ---
[address] [place] [address] Test Date: 2017-05-29 Pat Name: Fer Swanson Department: 103 Room: 06 Gender: M Drying Supervisor: : [id number] Requested By: Nicola Tovar Order Number: [id number] Reading MD: Lisa uW Measurements Intervals [place] Rate: 157 P: ND: 0 QRS: -42 QRSD: 129 T: 124 QT: 310 QTc: 398 Interpretive Statements ATRIAL FIBRILLATION WITH RAPID VENTRICULAR RESPONSE MARKED LEFT AXIS DEVIATION [QRS AXIS < -30] MODERATE INTRAVENTRICULAR CONDUCTION DELAY [110+ ms QRS DURATION] MODERATE VOLTAGE CRITERIA FOR LVH, CONSIDER NORMAL VARIANT Electronically Signed On 05-31-2017 19:51:51 EST by Lisa Wu
[2017-06-02] MEDS ORDERED: Scopolamine Patch 1.5 MG PATCH.TD72 TD SCH (15:30)
== END 2017-05-30 22:50 | disposition expired | DRG 871 ==
LOC: EMEROO 12:37 → ICNU 16:53
PROVIDERS: ADMIT Internal Medicine; ATTEND Internal Medicine